=== PATIENT | female | born 1990 | race Caucasian/White ===

== ENCOUNTER 2019-03-01 17:00 | Emergency (ER) | payer MEDICAID ==
[~2019-03-01] VITALS: Ht 157.5 cm; Wt 51.7 kg
[~2019-03-01 17:00] MED LIST: BEN50 PO
[2019-03-01 17:07] VITALS: BP 110/66
--- NOTE | 2019-03-01 17:14 | NUR ---
PT TO ER LOBBY. PT ALERT AND AWAKE, VS STABLE
--- NOTE | 2019-03-01 17:42 | NUR ---
PT AMBULATED TO ER BED 11
[2019-03-01] MEDS ORDERED: ONDANSETRON 4 MG/2 ML VIAL IVP ONE (17:50)
[2019-03-01] MEDS ORDERED: MULTIVITAMIN-12 10 ML, THIAMINE 100 MG, MAGNESIUM SULFATE 50% 2,000 MG, FOLIC ACID 5 MG... IV ONE ×5 (17:50)
[2019-03-01] MEDS ORDERED: FAMOTIDINE 20 MG/2 ML VIAL IVP ONE (17:50)
[2019-03-01] MEDS ORDERED: PROMETHAZINE 25 MG SUPP RC ONE (17:50)
[2019-03-01] MEDS ORDERED: MULTIVITAMIN-12 10 ML VIAL IV ONE (18:15)
[2019-03-01] MEDS ORDERED: FOLIC ACID 5 MG/ML SYR ONE (18:15)
[2019-03-01] MEDS ORDERED: THIAMINE 200 MG/2 ML VIAL ONE (18:15)
[2019-03-01 18:17] LABS: APPEARANCE,URINE CLOUDY (CLEAR); BILIRUBIN,URINE NEGATIVE (NEGATIVE); BLOOD, URINE NEGATIVE (NEGATIVE); COLOR,URINE YELLOW (YELLOW); LEUKOCYTE ESTERASE ,URINE TRACE (NEGATIVE); NITRITE, URINE NEGATIVE (NEGATIVE); PH,URINE 5.5 (5.0-9.0); UGLUCOSE NEGATIVE (NEGATIVE)
[2019-03-01] MEDS ORDERED: MAG SULF 2000 MG/WATER PREMIX 50 ML IV ONE (18:18)
[2019-03-01 18:41] LABS: RBC,URINE NONE SEEN /HPF (0-5); WBC,URINE 0-5 /HPF (0-5)
--- NOTE | 2019-03-01 18:45 | NUR ---
A0 LMP 12/30/18 4 WK PREG C/O ABDOMINAL PAIN X 3 DAYS AND N/V X TODAY. PT STATES SHE IS UNABLE TO KEEP FOOD/WATER DOWN NOW. BOWEL SOUNDS PRESENT X4, LBM TODAY: REGULAR PER PT, ABDOMEN SOFT/FLAT/NON TENDER TO PALPATION. DENIES DYSURIA/FEVER/ VAG BLEEDING. BED IN LOW POSITION, SIDE RAIL UP X1.
--- NOTE | 2019-03-01 18:50 | NUR ---
DR. CHING AT BEDSIDE EVALUATING PT.
[2019-03-01 18:55] LABS: BASOPHILS % (AUTO) 0.5 % (0.0-2.0); EOSINOPHILS % (AUTO) 0.3 % (0.0-4.0); HEMATOCRIT 36.9 % (36-48); HEMOGLOBIN 12.4 g/dL (12.0-16.0); LYMPHOCYTES # (AUTO) 1.3 K/uL (2.5-16.5); LYMPHOCYTES % (AUTO) 18.2 % (20.5-51.1); MEAN CORPUSCULAR HEMOGLOBIN 31 pg (27-31); MEAN CORPUSCULAR HGB CONC 34 g/dL (33-37); MEAN CORPUSCULAR VOLUME 91.3 fL (80-94); MONOCYTES # (AUTO) 0.5 K/uL (0.8-1.0); MONOCYTES % (AUTO) 7.4 % (1.7-9.3); NEUTROPHILS # (AUTO) 5.2 K/uL (1.8-7.7); NEUTROPHILS % (AUTO) 73.6 % (42.2-75.2); PLATELET COUNT (AUTO) 232 K/uL (140-450); RED BLOOD CELL COUNT(AUTO) 4.04 MIL/uL (4.20-5.40); RED CELL DISTRIBUTION WIDTH 13.7 % (11.6-13.7); WHITE BLOOD COUNT (AUTO) 7.1 K/uL (4.8-10.8)
--- NOTE | 2019-03-01 19:15 | NUR ---
PT RESTING IN BED, WATCHING TV ON PHONE. NO NEW NEEDS AT THIS TIME
--- NOTE | 2019-03-01 19:15 | NUR ---
REPORT GIVEN TO CHLOE WELLS FOR CONTINUATION OF CARE
--- NOTE | 2019-03-01 20:20 | NUR ---
Patient discharged with v/s stable. Written and verbal after care instructions given and explained. Patient alert, oriented and verbalized understanding of instructions. Ambulatory with steady gait. All questions addressed prior to discharge. ID band removed. Patient advised to follow up with PMD. Rx of TYLENOL AND DICLEGIS given. Patient educated on indication of medication including possible reaction and side effects. Opportunity to ask questions provided and answered. PER DR. YOO WHO IS AT BEDSIDE- OKAY TO D/C PATIENT NOW WITHOUT COMPLETING IVF MEDICATIONS.
[2019-03-01 20:22] VITALS: BP 123/76
== END 2019-03-01 20:20 | disposition home or self-care (01) ==
LOC: MED 17:00
DX: O21.0 Mild hyperemesis gravidarum (principal); O26.891 Other specified pregnancy related conditions, first trimester; R10.2 Pelvic and perineal pain; Z91.013 Allergy to seafood; Z79.899 Other long term (current) drug therapy; Z3A.01 Less than 8 weeks gestation of pregnancy
CPT/HCPCS: 36415; 76817; 81001; 81025; 84702; 85025; 86900; 86901; 96365; 96375; 99284; A9153; J2405; J3411; J3475; J3490; Q0092; J2550